=== PATIENT | male | born 1950 | race Caucasian/White ===

== ENCOUNTER 2019-11-18 00:43 | Outpatient (CLI) | payer MEDICARE, SELFPAY ==
[2019-11-18 18:28] LABS: SARS-CoV-2 RNA PCR Negative
== END 2019-11-18 00:44 | disposition home or self-care (01) ==
LOC: ANHCOVIDDT 00:44
PROVIDERS: PCP Internal Medicine; Visit Provider Internal Medicine Critical Care Medicine
DX: Z20.828 Contact with and (suspected) exposure to other viral communicable diseases (principal)
CPT/HCPCS: 87635; C9803; U0003

== ENCOUNTER 2019-11-20 09:58 | Outpatient (CLI) | payer MEDICARE, SELFPAY ==
--- NOTE | 2019-12-10 00:11 | SLEEP_ITS ---
Split-night Sleep Study DATE OF STUDY: 11/20/2019 ORDERING PHYSICIAN: Dr. Willam Serrano. REASON FOR THE STUDY: Hypersomnia. HISTORY: This patient is a 69-year-old man, 73 inches tall, 225 pounds with body mass index 29.7. He has very loud snoring and difficulty sleeping through the night. He falls asleep easily around 10 to 10:30 p.m., usually wakes in 3-4 hours to go to the bathroom. He often has difficulty returning to sleep afterwards. Usually wakes at least once per night, usually twice. This has been going on for several years. He wakes up during the night as well as in the rn birthing hours. He has used Ambien. His snoring is frequently loud enough that others complain about it. He denies awakening from sleep feeling short of breath or with heartburn, belching, or coughing. He occasionally has trouble sleeping with a cold. He does not gasp for breath at night, does not sweat excessively at night or notices heart pounding or beating irregularly at night. He occasionally falls asleep during the day, never involuntarily, or while driving. He does not fall asleep during physical effort. He does not have loss of muscle tone with strong emotion or daytime difficulties due to excessive sleepiness. He does not feel paralyzed on waking or falling asleep. He does not have vivid dreamlike scenes upon awakening or falling asleep. He is never afraid to go to sleep and does not have nightmares. He occasionally remembers his dreams, occasionally has racing thoughts. He rarely feels sad or depressed. He occasionally has anxiety. He occasionally has muscular tension. He sometimes has cramping in his legs and feet. He rarely notices parts of his body jerking and he rarely kicks at night. He rarely has crawly achy feelings in the legs, but occasionally has cramping. He does not have morning jaw pain, rarely grinds his teeth at night. He frequently is bothered by pain during the day as well as back pain at night which wakes him, frequently wakes up feeling stiff in the morning. He has sore achy muscles in the morning on occasion if his legs have been cramping. He occasionally wakes up with pain in the neck and spine. He has occasional fatigue. Bedtime was 10 p.m., falling asleep in less than 15 minutes waking 2 or 3 times at night, often having trouble getting back to sleep. During this time, he will go to the bathroom. He wakes up in the morning between 5 and 6 a.m. Weekend schedule is the same. He estimates 6-7 hours of sleep at night. He does take naps. A short nap 10 or 15 minutes may be refreshing. He is usually drowsy in the morning for 1 hour. He feels better in the morning than other times a day. MEDICAL COMORBIDITIES: Hypertension, seasonal allergies, back fusion L3 through L5 with back pain, hyperlipidemia, hearing loss, right bundle-branch block, prediabetes, fatigue. MEDICATIONS: 1. Aspirin 81 mg a day. 2. Atorvastatin 40 mg a day. 3. Candesartan 32 mg a day. 4. Calcium citrate 315 mg with vitamin D3 2 tablets twice a day. 5. [place]-3 fatty acids 2000 mg b.i.d. 6. Tizanidine 4 mg t.i.d. p.r.n. 7. Hydrocodone/acetaminophen 5 mg/325 one q.6 hours p.r.n. pain. 8. Zolpidem 5 mg. HABITS: Quit tobacco 30 years ago. Caffeine, 2 servings per day. One alcoholic beverage a day. No recreational drugs. DESCRIPTION OF THE STUDY: On the Dawn Sleepiness Scale, his score is 11. This was a split-night study using the [employer] multiple channel system including EOG, EEG, submental EMG, EKG, nasal and oral airflow using thermistors and nasal pressure sensors, chest and abdominal belts, body position data, and pulse oximetry. This study was scored using [facility] guidelines. During the diagnostic portion, recording time was 162.2 minutes. Sleep time
== END 2019-11-20 09:59 | disposition home or self-care (01) ==
LOC: ANHCSM 09:58
PROVIDERS: PCP Internal Medicine; Visit Provider Internal Medicine
DX: G47.33 Obstructive sleep apnea (adult) (pediatric) (principal)
CPT/HCPCS: 95811

== ENCOUNTER → 2020-04-08 03:25 | Outpatient (CLI) | payer MEDICARE, SELFPAY ==
[2020-04-08 18:10] LABS: SARS-CoV-2 RNA PCR Negative
== END ==
PROVIDERS: PCP Internal Medicine; Visit Provider Internal Medicine Gastroenterology
DX: Z01.812 Encounter for preprocedural laboratory examination (principal); Z20.822 Contact with and (suspected) exposure to COVID-19
CPT/HCPCS: C9803; J2704; U0003; U0005

== ENCOUNTER 2020-04-11 02:04 | Day surgery (SDC) | payer MEDICARE, SELFPAY ==
[2020-03-22 15:05] VITALS: BMI 30.2
[2020-04-11 06:40] VITALS: BP 157/89; PULSE 84; RESP 18; TEMP 36.3; O2SAT 98; BMI 30.3
[2020-04-11] MEDS: LACTATED RINGERS 1,000 ML 150 ML IV CONT (06:49)
--- NOTE | 2020-04-11 07:12 | WPDANESEPPF ---
Anes - Initial Pre Proc Eval Procedure: Operation Date: 04/11/20 08:00 Proposed Procedures p Screening Colonoscopy - Zachary Maier MD Date/Time: 04/11/20 07:12 Surgeon: Zachary Maier MD Pre Op Diagnosis: Neoplasm Screening Patient Data Age: 69 Gender: M Height: 1.85 m Weight: 104.2 kg Last Vital Signs Temp 36.3 C L 04/11/20 06:40 Pulse 84 04/11/20 06:40 Resp 18 04/11/20 06:40 BP 157/89 H 04/11/20 06:40 Pulse Ox 98 04/11/20 06:40 Allergies Allergy/AdvReac Type Severity Reaction Status Date / Time No Known Allergies Allergy Mild Verified 04/11/20 06:39 Home Medications Medication Instructions Recorded Confirmed Type aspirin 81 mg tablet,delayed 81 mg PO DAILY 02/13/19 03/22/20 History release calcium citrate 315 mg 2 tablet PO BID tablet 08/11/19 03/22/20 History calcium-vitamin D3 6.25 mcg (250 unit) tablet omega-3 fatty acids 1,000 mg 2,000 mg PO BID #90 cap 08/11/19 03/22/20 Rx capsule zolpidem 5 mg tablet 5 mg PO ONCE #90 tablet 09/07/19 03/22/20 Rx atorvastatin 40 mg tablet See Rx Instructions .ROUTE 03/09/20 03/22/20 Rx .COMPLEX #90 tablet candesartan 32 mg tablet See Rx Instructions .ROUTE 03/09/20 03/22/20 Rx .COMPLEX #90 tablet folic acid 800 mcg tablet 0.8 mg PO DAILY 03/09/20 03/22/20 History mecobalamin (vitamin B12) 1,000 1,000 mcg SUBLINGUAL DAILY 03/09/20 03/09/20 History mcg disintegrating tablet,sublingual sodium,potassium,mag sulfates 17.5 See Rx Instructions PO .COMPLEX 03/18/20 Rx gram-3.13 gram-1.6 gram oral soln #354 ml cholecalciferol (vitamin D3) 25 25 mcg PO DAILY 03/23/20 History mcg (1,000 unit) capsule Patient hx anesthesia problems: none Family hx anesthesia problems: none PMFSH Past Medical History Medical History (Updated 03/17/20 @ 09:25 by Ashley Mejia LPN) Abnormal finding of blood chemistry Benign essential hypertension BMI 29.0-29.9,adult BMI 30.0-30.9,adult BMI 31.0-31.9,adult Chronic low back pain Colon cancer screening Cough DJD (degenerative joint disease), multiple sites Elevated homocysteine Encounter for Medicare annual wellness exam Encounter for routine adult health examination without abnormal findings Encounter for special screening examination for neoplasm of prostate Fatigue FHx: prostate cancer High frequency hearing loss Hyperlipidemia Hypersomnolence disorder, persistent Insomnia On shelter drug therapy LEX on CPAP Pre-diabetes Right bundle branch block Vitamin D deficiency Surgical History Surgical History History of back surgery July 24, 2019 Family History Family History Father Malignant neoplasm of prostate Social History Social History Years smoked: 4 Smoking status: Former smoker Tobacco type: cigars Second hand tobacco smoke exposure: No Additional smoking assessment comments: cigar once or twice a week Alcohol intake: current Drinks per week: 4 Living arrangements: with family Gender identity (if verbalized by the patient): Male Spiritual care concerns: No Anes - Eval Final PreProcedure Day of Procedure 04/11/20 07:12 Patient weight: obese Heart: regular rate and rhythm Lungs: clear to auscultation and normal air movement Airway: Mallampati scale class II Neurological: alert and oriented Last oral intake: >/= 8 hours ASA classification: III Emergent: no Anesthetic plan: proceed Anesthesia type and monitoring: general GIVS Informed Consent: The patient's anesthetic plan and its attendant risks and benefits were discussed with the patient/family/POA. Questions were solicited and answers provided to the satisfaction of the patient/family/POA.
--- NOTE | 2020-04-11 07:32 | PM.HPGS ---
History of Present Illness History of Present Illness Consent: Risks, benefits, and alternatives have been discussed and questions answered. Patient agrees to proceed with procedure. Chief complaint: Neoplasm Screening Narrative: Scar Ocampo Jr. is a 69 year old male here for screening colonoscopy, last one over 10 years ago. Review of Systems Constitutional: Constitutional: Denies headache(s) and Denies weakness Eyes: Eyes: Denies blurry vision ENT: Reports Normal hearing present, Denies headache(s) and Denies neck pain Cardiovascular: Cardiovascular: Denies chest pain and Denies dyspnea Respiratory: Respiratory: Denies dyspnea Gastrointestinal: Gastrointestinal: Reports no additional gastrointestinal complaints Genitourinary: Genitourinary: Denies dysuria Musculoskeletal: Musculoskeletal: Denies neck pain Integumentary/Breasts: Skin/Breast: Denies dry skin Neurologic: Reports Normal hearing present, Denies headache(s) and Denies weakness Psychiatric: Psychiatric: Denies anxiety Endocrine: Endocrine: Denies change in body appearance Hematologic/Lymphatic: Hematologic/Lymphatic: Denies easy bleeding Allergic/Immunologic: Allergic/Immunologic: Denies urticaria PMF Past Medical History Medical History (Updated 03/17/20 @ 09:25 by Ashley Mejia LPN) Abnormal finding of blood chemistry Benign essential hypertension BMI 29.0-29.9,adult BMI 30.0-30.9,adult BMI 31.0-31.9,adult Chronic low back pain Colon cancer screening Cough DJD (degenerative joint disease), multiple sites Elevated homocysteine Encounter for Medicare annual wellness exam Encounter for routine adult health examination without abnormal findings Encounter for special screening examination for neoplasm of prostate Fatigue FHx: prostate cancer High frequency hearing loss Hyperlipidemia Hypersomnolence disorder, persistent Insomnia On jail drug therapy LEX on CPAP Pre-diabetes Right bundle branch block Vitamin D deficiency Surgical History Surgical History History of back surgery July 24, 2019 Family History Family History Father Malignant neoplasm of prostate Social History Social History Years smoked: 4 Smoking status: Former smoker Tobacco type: cigars Second hand tobacco smoke exposure: No Additional smoking assessment comments: cigar once or twice a week Alcohol intake: current Drinks per week: 4 Living arrangements: with family Gender identity (if verbalized by the patient): Male Spiritual care concerns: No Meds Home Medications and Allergies Home Medications Medication Instructions Recorded Confirmed Type aspirin 81 mg tablet,delayed 81 mg PO DAILY 02/13/19 03/22/20 History release calcium citrate 315 mg 2 tablet PO BID tablet 08/11/19 03/22/20 History calcium-vitamin D3 6.25 mcg (250 unit) tablet omega-3 fatty acids 1,000 mg 2,000 mg PO BID #90 cap 08/11/19 03/22/20 Rx capsule zolpidem 5 mg tablet 5 mg PO ONCE #90 tablet 09/07/19 03/22/20 Rx atorvastatin 40 mg tablet See Rx Instructions .ROUTE 03/09/20 03/22/20 Rx .COMPLEX #90 tablet candesartan 32 mg tablet See Rx Instructions .ROUTE 03/09/20 03/22/20 Rx .COMPLEX #90 tablet folic acid 800 mcg tablet 0.8 mg PO DAILY 03/09/20 03/22/20 History mecobalamin (vitamin B12) 1,000 1,000 mcg SUBLINGUAL DAILY 03/09/20 03/09/20 History mcg disintegrating tablet,sublingual sodium,potassium,mag sulfates 17.5 See Rx Instructions PO .COMPLEX 03/18/20 Rx gram-3.13 gram-1.6 gram oral soln #354 ml cholecalciferol (vitamin D3) 25 25 mcg PO DAILY 03/23/20 History mcg (1,000 unit) capsule Allergies Allergy/AdvReac Type Severity Reaction Status Date / Time No Known Allergies Allergy Mild Verified 04/11/20 06:39 Vital Signs Lorena
[2020-04-11 07:48] VITALS: BP 118/69; PULSE 66; RESP 12; O2SAT 95
[2020-04-11 07:58] VITALS: BP 137/80; PULSE 77; RESP 12; O2SAT 96
[2020-04-11 08:08] VITALS: BP 135/78; PULSE 65; RESP 19; O2SAT 97
== END 2020-04-11 08:37 | disposition home or self-care (01) ==
PROVIDERS: Family Provider Internal Medicine; PCP Internal Medicine; Visit Provider Internal Medicine Gastroenterology
PROC: 0DJD8ZZ Inspection of Lower Intestinal Tract, Via Natural or Artificial Opening Endoscopic (ICD-10-PCS; CPT 45378; principal; 2020-04-11 08:00)
DX: Z12.11 Encounter for screening for malignant neoplasm of colon (principal); K57.30 Diverticulosis of large intestine without perforation or abscess without bleeding; D12.4 Benign neoplasm of descending colon; I10 Essential (primary) hypertension; E78.5 Hyperlipidemia, unspecified; G47.33 Obstructive sleep apnea (adult) (pediatric); R73.03 Prediabetes; I45.10 Unspecified right bundle-branch block; E55.9 Vitamin D deficiency, unspecified; Z87.891 Personal history of nicotine dependence; E66.9 Obesity, unspecified; Z68.30 Body mass index [BMI] 30.0-30.9, adult
CPT/HCPCS: 45380; 88305; C9803; J2704; J7120; U0003; U0005

== ENCOUNTER 2020-05-13 10:58 | Outpatient (CLI) | payer MEDICARE, SELFPAY | END 2020-05-13 10:59 | disposition home or self-care (01) | LOC: ANHCOVIDVC 10:58 | PROVIDERS: PCP Internal Medicine | DX: Z23 Encounter for immunization (principal) | CPT/HCPCS: 0001A; 91300 ==

== ENCOUNTER 2020-06-06 10:57 | Outpatient (CLI) | payer MEDICARE, SELFPAY | END 2020-06-06 10:58 | disposition home or self-care (01) | LOC: ANHCOVIDVC 10:57 | PROVIDERS: PCP Internal Medicine | DX: Z23 Encounter for immunization (principal) | CPT/HCPCS: 0002A; 91300 ==

== ENCOUNTER → 2020-12-13 15:20 | Outpatient (REF) | payer MEDICARE, SELFPAY | LOC: ANHLAB 15:20 | PROVIDERS: PCP Internal Medicine; Visit Provider Nurse Practitioner | DX: C44.319 Basal cell carcinoma of skin of other parts of face (principal) | CPT/HCPCS: 88305 ==

== ENCOUNTER → 2021-02-06 07:37 | Outpatient (REF) | payer MEDICARE, SELFPAY | LOC: ANHLAB 07:37 | PROVIDERS: PCP Internal Medicine; Visit Provider Nurse Practitioner | DX: C44.319 Basal cell carcinoma of skin of other parts of face (principal) | CPT/HCPCS: 88305; 88331 ==

== ENCOUNTER 2022-09-10 09:30 | Emergency (ER) | payer MEDICARE, SELFPAY ==
[2022-09-10 09:41] VITALS: BP 128/81; PULSE 87; RESP 20; TEMP 36.6; O2SAT 96
--- NOTE | 2022-09-10 10:11 | ED.SKABFB ---
HPI - Skin/Abscess/Foreign Bdy General Chief complaint: Skin/Abscess/Foreign Body Stated complaint: cut on left ankle Time Seen by Provider: 09/10/22 09:54 Source: patient and RN notes reviewed History of Present Illness HPI narrative: Patient presents today complaining of lacerations to his left lateral ankle that were sustained last night at 7:00 p.m. when he was taking out the trash. There was a broken candle stick in the dressed back and it hit against his ankle a few times cutting him. He clean the area out and dressed it with a bandage in Neosporin. He is not sure of the date of his last tetanus vaccine. Related Data Home Medications Medication Instructions Recorded Confirmed aspirin 81 mg tablet,delayed 81 mg PO DAILY 02/13/19 09/10/22 release (Adult Low Dose Aspirin) folic acid 800 mcg tablet 0.8 mg PO DAILY 03/09/20 09/10/22 mecobalamin (vitamin B12) 1,000 1,000 mcg sublingual DAILY 03/09/20 09/10/22 mcg disintegrating tablet,sublingual calcium carbonate 600 mg-vitamin 2 tablet PO BID 07/21/20 09/10/22 D3 5 mcg (200 unit) tablet cholecalciferol (vitamin D3) 50 100 mcg PO BID 07/21/20 09/10/22 mcg (2,000 unit) capsule ascorbic acid (vitamin C) 1,000 mg 1 g PO DAILY 12/12/20 09/10/22 tablet omega-3 fatty acids 1,000 mg 2,000 mg PO BID 12/12/20 09/10/22 capsule (Fish Oil Concentrate) Allergies Allergy/AdvReac Type Severity Reaction Status Date / Time No Known Allergies Allergy Mild Verified 09/10/22 09:35 Review of Systems Review of Systems: CONSTITUTIONAL: Denies body aches, fever, chills, or sweats. EYES: Denies visual changes, redness, or discharge. ENT: Denies rhinorrhea, congestion, sore throat, or otalgia. CARDIOVASCULAR: Denies chest pain, palpitations, or edema. RESPIRATORY: Denies cough or dyspnea. GASTROINTESTINAL: Denies abdominal pain, nausea, vomiting, or diarrhea. GENITOURINARY: Denies dysuria or hematuria. SKIN: Denies rash, itching. + ankle lacerations MUSCULOSKELETAL: Denies back pain, joint pain, or myalgia. NEUROLOGIC: Denies headache, numbness, tingling, or weakness. PSYCH: Denies depression or anxiety. [facility] Past Medical History Medical History Abnormal finding of blood chemistry Benign essential hypertension BMI 29.0-29.9,adult BMI 30.0-30.9,adult BMI 31.0-31.9,adult Cervical spondylosis with radiculopathy Cervicalgia Chronic low back pain Colon cancer screening Cough Diastolic dysfunction DJD (degenerative joint disease), multiple sites Elevated fasting glucose Elevated homocysteine Encounter for Medicare annual wellness exam Encounter for routine adult health examination with abnormal findings Encounter for routine adult health examination without abnormal findings Encounter for special screening examination for neoplasm of prostate Fatigue FHx: prostate cancer High frequency hearing loss Hyperlipidemia Hypersomnolence disorder, persistent IGT (impaired glucose tolerance) Insomnia Leg pain, right Limp Nocturia On prison drug therapy LEX on CPAP Pre-diabetes Right bundle branch block Sinus congestion URI (upper respiratory infection) Vitamin D deficiency Surgical History Surgical History History of back surgery July 24, 2019 Family History Family History Father Malignant neoplasm of prostate Social History Social History Years smoked: 4 Smoking status: Current some day smoker Tobacco type: cigars Second hand tobacco smoke exposure: No Additional smoking assessment comments: cigar once or twice a week Alcohol intake: current Drinks per week: 4 Lack of Transportation: No Lack of Food: Never True Current Housing: I Have Housing Concerned About Future Housing: No Difficulty P
[2022-09-10] MEDS: TETANUS/DIPHTHERIA TOXOIDS ADSORB 0.5 ML VIAL (*BKC) IM (10:25)
== END 2022-09-10 10:33 | disposition home or self-care (01) ==
PROVIDERS: Emergency Provider Nurse Practitioner; PCP Internal Medicine
DX: S91.012A Laceration without foreign body, left ankle, initial encounter (principal); W45.8XXA Other foreign body or object entering through skin, initial encounter; Z23 Encounter for immunization; Z79.82 Long term (current) use of aspirin; I10 Essential (primary) hypertension; E78.5 Hyperlipidemia, unspecified; G47.33 Obstructive sleep apnea (adult) (pediatric); R73.03 Prediabetes; E55.9 Vitamin D deficiency, unspecified; F17.290 Nicotine dependence, other tobacco product, uncomplicated
CPT/HCPCS: 90471; 90714; 99213; G0463

== ENCOUNTER 2022-09-25 11:29 | Outpatient (CLI) | payer MEDICARE, SELFPAY ==
--- NOTE | ~2022-09-25 | XR_ITS ---
AP and lateral views of the right hip Clinical history: Pain Findings: No acute fracture or dislocation is seen. Osseous alignment is anatomic. Bilateral hip and SI joint spaces are preserved. Soft tissues are unremarkable. Impression: No significant abnormality is seen. Reviewed, dictated and finalized at location . Impression: No significant abnormality is seen.
--- NOTE | ~2022-09-25 | XR_ITS ---
XR lumbar spine 2-3V DATE: 09/25/2022 11:56 INDICATION: Low back pain TECHNIQUE: AP, lateral, coned lateral lumbosacral and flexion and extension weightbearing lateral vie ws COMPARISON: None FINDINGS: There is dextroscoliosis of the lumbar spine. There is osteopenia. Status post L4 laminectomy. Status post posterior surgical fusion by pedicle screws and rods at L3-L5 bilaterally. Prominent degenerative spurring the lower thoracic and lumbar spine, with moderate degenerative disc disease at L1-2, L2-3 and L5-S1. Grade 1 anterolisthesis at L4-5, stable in flexion and extension. The sacroiliac joints are intact. IMPRESSION: Status post lumbar laminectomy and bilateral posterior surgical fusion at L3-L5 since 11/02 Multilevel moderate degenerative disc disease of the lumbar spine Osteopenia Dextroscoliosis Reviewed, dictated and finalized at location L. IMPRESSION: Status post lumbar laminectomy and bilateral posterior surgical fus ion at L3-L5 since 11/19/2017 Multilevel moderate degenerative disc disease of the lumbar spine Osteopenia Dextroscoliosis
== END 2022-09-25 11:30 | disposition home or self-care (01) ==
PROVIDERS: PCP Internal Medicine; Visit Provider Internal Medicine
DX: M25.551 Pain in right hip (principal); G89.29 Other chronic pain; M79.604 Pain in right leg; M54.50 Low back pain, unspecified; M51.36 Other intervertebral disc degeneration, lumbar region; M85.88 Other specified disorders of bone density and structure, other site
CPT/HCPCS: 72100; 73502

== ENCOUNTER 2022-11-06 12:31 | Outpatient (NON) | payer MEDICARE, SELFPAY | END 2022-11-06 12:32 | disposition home or self-care (01) | LOC: ANHLAB 11-07 12:33 | PROVIDERS: PCP Internal Medicine; Visit Provider Nurse Practitioner | DX: C44.311 Basal cell carcinoma of skin of nose (principal) | CPT/HCPCS: 88305 ==

== ENCOUNTER 2022-12-10 12:55 | Outpatient (NON) | payer MEDICARE, SELFPAY | END 2022-12-10 12:56 | disposition home or self-care (01) | LOC: ANHLAB 12:55 | PROVIDERS: PCP Internal Medicine; Visit Provider Nurse Practitioner | DX: C44.311 Basal cell carcinoma of skin of nose (principal) | CPT/HCPCS: 88305; 88331 ==

== ENCOUNTER 2023-09-26 09:09 | Outpatient (CLI) | payer MEDICARE, SELFPAY | END 2023-09-26 09:10 | disposition home or self-care (01) | PROVIDERS: PCP Internal Medicine; Visit Provider Internal Medicine | DX: H90.3 Sensorineural hearing loss, bilateral (principal); H61.23 Impacted cerumen, bilateral | CPT/HCPCS: 92557; 92567 ==

== ENCOUNTER 2023-09-30 13:04 | Outpatient (CLI) | payer MEDICARE, SELFPAY ==
--- NOTE | ~2023-09-30 | US_ITS ---
EXAMINATION: US thyroid DATE: 09/30/2023 13:21 INDICATION: Abnormal findings on diagnostic imaging. TECHNIQUE: Multiple ultrasound images of the thyroid were obtained. COMPARISON: None. FINDINGS: The right thyroid lobe measures 5.8 x 2.5 x 2.5 cm. The left thyroid lobe measures 5.3 x 2.1 x 2.3 c m. The thyroid demonstrates coarsened echotexture. Vascularity is normal. In the left thyroid lobe, there is a 14 mm solid, hypoechoic, wider than tall nodule with ill-defined margin without echogenic foci (TI-RADS TR4). In the right thyroid lobe, there is a 9 mm solid, hypoechoic, wider than tall nod ule with smooth margin without echogenic foci (TR4). In the right thyroid lobe, there is a 14 mm kofi d, hypoechoic, wider than tall nodule with ill-defined margin without echogenic foci (TR4). In the ri ght thyroid lobe, there is a 7 mm solid, very hypoechoic, wider than tall nodule with smooth margin w ithout echogenic foci (TR4). IMPRESSION: 1. Multinodular goiter. Thyroid ultrasound is recommended in one year. Reviewed, dictated and finalized at location A.
== END 2023-09-30 13:05 ==
LOC: MICIMG 13:04
PROVIDERS: PCP Internal Medicine; Visit Provider Internal Medicine
DX: E04.2 Nontoxic multinodular goiter (principal); R93.89 Abnormal findings on diagnostic imaging of other specified body structures
CPT/HCPCS: 76536